=== PATIENT | male | born 1955 | race American Indian/Alaskan Native ===

== ENCOUNTER 2017-12-31 06:47 | Day surgery (SDC) | payer MEDICARE ==
--- NOTE | 2017-12-31 08:32 | CP.SDSHP ---
Same Day Surgery H & P - History Proposed Procedure: EGD. Colonoscopy Pre-Op Diagnosis: epigastric pain/heartburn. Constipation. Screening for colon cancer - Previous Medical/Surgical History Cardiac: Hypertension, PVD Pulmonary: Emphysema/COPD Endocrine/Metabolic: Renal Disease Neuro: Backaches Misc: Other (DVT, Polycystic kidneys, L/S Disc disease) Previous Surgical History: AV fistula. Left nephrectomy - Allergies Allergies: Allergies No Known Allergies Allergy (Verified 12/31/17 07:21) - Physical Exam Vital Signs: Vital Signs 12/31/17 07:28 Temperature 97.3 F L Pulse Rate 60 Respiratory 19 Rate Blood Pressure 153/66 H O2 Sat by Pulse 97 Oximetry Mental Status: Alert & Oriented x3 Neuro: WNL Heart: WNL Lungs: WNL GI: WNL - {Optional Preform as Required} Other Pertinent Findings: Elliquis and ASA held for five days as per Dr Devine who provided cardiac clearance for the procedures today. - Impression Impression: epigastric pain/heartburn. constipation. screening for colon cancer Pt. Evaluated Today:Candidate for Anesthesia & Procedure: Yes - Date & Time Date: 12/31/17 Time: 08:33 Short Stay Discharge - Short Stay Discharge Admitting Diagnosis/Reason for Visit: EPIGASTRIC PAIN,CHANGE IN BOWEL HABIT, HEARTBURN Disposition: HOME/ ROUTINE
[2017-12-31] MEDS ORDERED: Sodium Chloride 0.9% 1,000 ML IV ONE (08:35)
[2017-12-31] MEDS ORDERED: Propofol 10 mg/ml Inj (20 ML) ONE (08:42)
[2017-12-31] MEDS ORDERED: Lidocaine Hydrochloride 5 ML INJ ONE (08:42)
[2017-12-31] MEDS ORDERED: Midazolam 2 MG/2 ML VIAL ONE (08:42)
[2017-12-31 08:52] LABS: CALCIUM 8.4 mg/dl (8.6-10.4)
[2017-12-31 09:46] VITALS: PULSE 59; TEMP 97
[2017-12-31 10:37] VITALS: BP 128/51; RESP 17; O2SAT 98
== END 2017-12-31 10:36 | disposition home or self-care (01) ==
LOC: C.ENDO 06:47
PROVIDERS: ATTEND Internal Medicine Gastroenterology
DX: D12.3 Benign neoplasm of transverse colon (principal); D12.4 Benign neoplasm of descending colon; K64.1 Second degree hemorrhoids; K21.0 Gastro-esophageal reflux disease with esophagitis; K29.50 Unspecified chronic gastritis without bleeding; R10.13 Epigastric pain; R19.4 Change in bowel habit; R12 Heartburn; R14.0 Abdominal distension (gaseous); J44.9 Chronic obstructive pulmonary disease, unspecified; I12.0 Hypertensive chronic kidney disease with stage 5 chronic kidney disease or end stage renal disease; N18.6 End stage renal disease; Z99.2 Dependence on renal dialysis; Q61.3 Polycystic kidney, unspecified; I73.9 Peripheral vascular disease, unspecified; K59.00 Constipation, unspecified; F17.210 Nicotine dependence, cigarettes, uncomplicated
CPT/HCPCS: 36415; 43239; 45380; 80048; 88305; 88312; 88342; J2250; J2704; J3010; J7040